=== PATIENT | male | born 1945 | race Caucasian/White ===

== ENCOUNTER → 2017-03-04 | Outpatient (CLI) | payer MEDICARE, OTHER | END | disposition home or self-care (01) | LOC: GMAL 10:12 | PROVIDERS: ATTEND Family Medicine | DX: D51.3 Other dietary vitamin B12 deficiency anemia (principal); Z12.5 Encounter for screening for malignant neoplasm of prostate; E55.9 Vitamin D deficiency, unspecified; E83.42 Hypomagnesemia | CPT/HCPCS: 82306; 82607; 83735; G0103 ==

== ENCOUNTER → 2017-03-12 | Outpatient (CLI) | payer MEDICARE, OTHER | END | disposition home or self-care (01) | LOC: GMAL 10:45 | PROVIDERS: ATTEND Family Medicine | DX: E29.1 Testicular hypofunction (principal) ==

== ENCOUNTER → 2017-11-05 | Outpatient (CLI) | payer MEDICARE, OTHER | LOC: GMAL 13:00 | PROVIDERS: ATTEND Family Medicine | DX: D51.3 Other dietary vitamin B12 deficiency anemia (principal); E29.1 Testicular hypofunction; R97.20 Elevated prostate specific antigen [PSA]; E55.9 Vitamin D deficiency, unspecified ==

== ENCOUNTER → 2017-12-17 | Outpatient (CLI) | payer MEDICARE, OTHER | LOC: GMAL 11:16 | PROVIDERS: ATTEND Family Medicine | DX: R25.8 Other abnormal involuntary movements (principal) ==

== ENCOUNTER → 2019-06-08 | Outpatient (CLI) | payer MEDICARE, OTHER | LOC: GMAL 11:00 | PROVIDERS: ATTEND Family Medicine | DX: E83.42 Hypomagnesemia (principal) ==

== ENCOUNTER 2019-11-17 05:26 | Day surgery (SDC) | payer MEDICARE, OTHER ==
[2019-11-17] MEDS ORDERED: SODIUM CHLORIDE 0.9% 1000ML 1,000 ML ONE (06:01)
[2019-11-17] MEDS ORDERED: PROPOFOL 200 MG/20 ML VIAL IV ONE (07:00)
[2019-11-17] MEDS ORDERED: LIDOCAINE 1% 10 ML VIAL INJ ONE (07:00)
--- NOTE | 2019-11-17 09:26 | OP ---
DATE OF PROCEDURE: 11/17/19 PREOPERATIVE DIAGNOSIS: 1. Change in bowel habits. POSTOPERATIVE DIAGNOSIS: 1. Sigmoid polypectomy. 2. Internal hemorrhoids. 3. Diverticulosis. PROCEDURE: 1. Colonoscopy. SURGEON: Vincent Vargas MD. ANESTHESIA: MAC. COMPLICATIONS: None. PROCEDURE: Informed consent was obtained prior to sedation. The preprocedure cardiopulmonary assessment was satisfactory. The patient was placed in the left lateral decubitus position and was sedated. The tip of the Olympus colonoscope was inserted in the rectum and guided through the entire colon under direct visualization. The ileocecal valve and appendiceal orifice were identified. Withdrawal was started at this time. The colonoscopy prep was good. There was pancolonic diverticulosis, worse in the sigmoid. In the sigmoid colon, there was a 4 mm polyp that was removed using a hot snare. Retroflexion view of the anorectal area showed internal hemorrhoids, grade 2. Rectal biopsies were done with cold forceps for histology. The scope was then withdrawn from the patient and the procedure was terminated. RECOMMENDATION: 1. Discharge home. 2. Resume regular diet. 3. Followup in GI clinic in 4 weeks. 4. Return to the hospital if abnormal symptoms like abdominal pain, bleeding, fever or other occur. #[id number] MTDD
[2019-11-17 10:04] VITALS: BP 146/84; TEMP 97.1; O2SAT 97
== END 2019-11-17 09:45 | disposition home or self-care (01) ==
LOC: AMB 05:26
DX: Z12.11 Encounter for screening for malignant neoplasm of colon (principal); D12.5 Benign neoplasm of sigmoid colon; K57.30 Diverticulosis of large intestine without perforation or abscess without bleeding; K64.8 Other hemorrhoids; K76.0 Fatty (change of) liver, not elsewhere classified; I10 Essential (primary) hypertension; E78.00 Pure hypercholesterolemia, unspecified; Z85.01 Personal history of malignant neoplasm of esophagus; Z87.891 Personal history of nicotine dependence; Z79.899 Other long term (current) drug therapy
CPT/HCPCS: 00812; 45380; 45385; 88305; J3490; J7030

== ENCOUNTER → 2019-12-10 | Outpatient (CLI) | payer MEDICARE, OTHER | DX: M19.011 Primary osteoarthritis, right shoulder (principal) ==

== ENCOUNTER → 2020-03-02 | Outpatient (CLI) | payer MEDICARE, OTHER ==
--- NOTE | 2020-03-02 12:16 | MRI ---
EXAM DESCRIPTION: Lumbar Spine w/o Contrast CLINICAL HISTORY: 74 years Male, LOW BACK PAIN COMPARISON: None available. TECHNIQUE: Multiplanar multiecho imaging of the lumbar spine was performed without intravenous contrast administration. FINDINGS: Straightening of the normal lordotic curvature of the lumbar spine. The vertebral body heights are well-maintained with no acute compression deformity. Multilevel intervertebral disc space narrowing is noted. The conus medullaris terminates at T12 vertebral body. The visualized spinal cord demonstrates no signal abnormality. L1-L2: Disc desiccation and loss of disc height. 4 mm diffuse disc bulge with no central canal stenosis. Mild bilateral neural foraminal narrowing is noted secondary to facet arthropathy. L2-L3: Disc desiccation and loss of disc height. 2 mm retrolisthesis of L2 over L3. 6 mm posterior disc bulge with no significant central canal stenosis. Mild right and moderate to severe left neural foraminal narrowing is identified secondary to facet arthropathy. L3-L4: Disc desiccation and loss of disc height. 7 mm posterior disc bulge with resultant moderate to severe central canal stenosis. The thecal sac measures 7 mm. Moderate right and moderate to severe left neural foraminal narrowing is noted secondary to facet arthropathy. L4-L5: Disc desiccation and loss of disc height. 6.5 mm posterior disc bulge with no central canal stenosis. Severe bilateral neural foraminal narrowing is noted secondary to severe facet arthropathy. L5-S1: Disc desiccation and loss of disc height. 2 mm diffuse disc bulge with no significant central canal stenosis. There is abutment of the exiting left L5 nerve root due to the disc bulge. Mild left neural foraminal narrowing is noted secondary to facet arthropathy. The visualized prevertebral and paravertebral soft tissues appear unremarkable. 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 Electronically signed by: Glo Weinstein MD 03/02/2020 12:15 PM CDT
== END ==
LOC: MRI 08:06
PROVIDERS: ATTEND Family Medicine
DX: M51.36 Other intervertebral disc degeneration, lumbar region (principal); M12.88 Other specific arthropathies, not elsewhere classified, other specified site; M48.061 Spinal stenosis, lumbar region without neurogenic claudication

== ENCOUNTER → 2020-03-14 | Outpatient (CLI) | payer MEDICARE, OTHER | LOC: GMAL 10:59 | PROVIDERS: ATTEND Family Medicine | DX: D51.3 Other dietary vitamin B12 deficiency anemia (principal); E55.9 Vitamin D deficiency, unspecified; R97.20 Elevated prostate specific antigen [PSA]; I10 Essential (primary) hypertension; Z79.899 Other long term (current) drug therapy ==

== ENCOUNTER → 2020-09-11 | Outpatient (CLI) | payer MEDICARE, OTHER | LOC: GMAL 10:40 | PROVIDERS: ATTEND Family Medicine | DX: D51.3 Other dietary vitamin B12 deficiency anemia (principal); E55.9 Vitamin D deficiency, unspecified; R53.83 Other fatigue; Z79.899 Other long term (current) drug therapy; E78.2 Mixed hyperlipidemia; R97.20 Elevated prostate specific antigen [PSA] ==